=== PATIENT | male | born 1995 | race Hispanic/Latino ===

== ENCOUNTER 2016-07-13 14:46 | Emergency (ER) | payer SELFPAY ==
[~2016-07-13] VITALS: Ht 157.5 cm; Wt 70.0 kg
[2016-07-13 16:31] LABS: URINE BILIRUBIN - DIPSTICK NEGATIVE (NEGATIVE); URINE BLOOD DIPSTICK TRACE-INTACT (NEGATIVE); URINE CLARITY CLEAR; URINE COLOR YELLOW; URINE GLUCOSE - DIPSTICK NEGATIVE (NEGATIVE); URINE KETONE NEGATIVE (NEGATIVE); URINE LEUK ESTERASE NEGATIVE (NEGATIVE); URINE NITRITE - DIPSTICK NEGATIVE (Negative); URINE PH 5.5 (4.5-8.0); URINE PROTEIN - DIPSTICK NEGATIVE (NEG-TRACE); URINE UROBILINOGEN - DIPSTICK 0.2 E.U./dL (0.2)
[2016-07-13 16:57] VITALS: BP 183/92
== END 2016-07-13 17:03 | disposition home or self-care (01) | DRG 730 ==
LOC: ED 14:46
PROVIDERS: Emergency Medicine
DX: N48.89 Other specified disorders of penis (principal)